=== PATIENT | female | born 1960 | race Caucasian/White ===

== ENCOUNTER 2025-07-22 05:12 | Observation (INO) | payer OTHER ==
[2025-07-14 13:20] LABS: MEAN PLATELET VOLUME 9.2 FL (7.4-10.4); PRE OP HEMATOCRIT 38.5 % (35.0-45.0); PRE OP HEMOGLOBIN 12.9 g/dL (12.0-16.0); PRE OP PLATELET COUNT 180 X10'3 (140-440); PRE OP WHITE BLOOD COUNT 7.0 10'3 (4.8-10.8); RED CELL DISTRIBUTION WIDTH 14.1 % (11.5-14.5)
[2025-07-14 13:51] LABS: CREATININE 0.90 MG/DL (0.40-0.90); PRE OP ALT 15 U/L (30-65); PRE OP ANION GAP 8 (8-16); PRE OP AST 16 U/L (10-37); PRE OP BILIRUB, TOTAL 0.5 MG/DL (0.0-1.0); PRE OP GLUCOSE 93 MG/DL (70-104); PRE OP POTASSIUM 4.1 MMOL/L (3.4-5.1); PRE OP SODIUM 142 MMOL/L (135-145); TOTAL CARBON DIOXIDE 28.8 MMOL/L (24-32); eGFR 63 ML/MIN
[2025-07-22] VITALS (25 sets, daily range): BP systolic 96–161; BP diastolic 57–87; PULSE 37–76; RESP 10–19; TEMP 97.5–98.8; O2SAT 95–100
[~2025-07-22] VITALS: Ht 170.2 cm; Wt 117.9 kg
[~2025-07-22 05:12] MED LIST: ACET-1995 PO; CHOL-4 PO; MULT-1249 PO; NAPR220T67 PO; TIRZ2.5P SQ
[2025-07-22] MEDS: ringers solution, lacted 1,000 ML IV SCH ×2 (06:06→08:30)
[2025-07-22] MEDS: VANCOMYCIN/H2O 1.5g/300mL PB 300 ML IV ONE (06:07)
[2025-07-22] MEDS: ceFAZolin 2gm/dext,iso 50mL 50 ML IV ONE (06:07)
[2025-07-22] MEDS ORDERED: oxyCODONE IR 5mg (immed. release) tablet PO PRN (06:55)
[2025-07-22] MEDS ORDERED: bisacodyl 10mg suppository rectal RC PRN (06:55)
[2025-07-22] MEDS ORDERED: magnesium hydroxide 30ml (MOM) UD suspension PO PRN (06:55)
[2025-07-22] MEDS ORDERED: PCA WASTE DOCUMENTATION 1 MG ML MC SCH (06:55)
[2025-07-22] MEDS ORDERED: ondansetron/PF 4mg/2ml inj IV PRN ×2 (06:55→08:30)
[2025-07-22] MEDS ORDERED: ROPIVAcaine 0.5% (5mg/ml) 30ml vial ONE ×2 (07:00→09:15)
[2025-07-22] MEDS ORDERED: fentaNYL/PF 50MCG/1 ML 2ML syringe ONE (07:21)
[2025-07-22] MEDS ORDERED: ePHEDrine 50MG/ML INJ. ONE (07:32)
[2025-07-22] MEDS ORDERED: MIDAZolam 1 MG/ML 5ML VIAL ONE (07:32)
[2025-07-22] MEDS: ROPIVAcaine 0.5% (5mg/ml) 30ml vial IJ ONE (07:56)
[2025-07-22] MEDS ORDERED: fentaNYL/PF 50MCG/1 ML 2ML syringe IV PRN ×2 (08:30)
[2025-07-22] MEDS ORDERED: HYDROmorphone/PF 0.2 MG/ML SYRINGE IV PRN (08:30)
[2025-07-22] MEDS ORDERED: hydrALAZINE 20mg/ml inj. IV PRN (08:30)
[2025-07-22] MEDS ORDERED: labetalol 20mg/4ml (5mg/ml) syringe IV PRN (08:30)
[2025-07-22] MEDS ORDERED: propofol inj 20 ML IV ONE ×2 (09:15)
--- NOTE | 2025-07-22 09:48 | OPERATIVE REPORT ---
Operative Report Operative Report OPERATIVE REPORT [facility] [address] [place] [address] Date of service: July 22, 2025 PREOPERATIVE DIAGNOSIS M17..16 Primary osteoarthritis of right knee POSTOPERATIVE DIAGNOSIS M17..16 Primary osteoarthritis of right knee Operation Performed 22917 Total Knee Arthro[place]: [place] [address] Computer Assisted Navigation Musculoskeletal - Imageless [id number] Remote therapeutic monitoring; device supply with scheduled recordings every 30 days. Procedure: Computer-assisted, robotically-assisted, right total knee a rthroplasty. Surgeon: Dr. Roberto Carlos Banks Milled Rubber Tender: Marcela Rodas PA-C Anesthesiologist: Dr. Krishnamurthy Anesthesia: Spinal anesthetic and regional blocks Indications: 65-year-old female who has chronic osteoarthritis of the right knee with severe pain and limitation of activities despite extensive non- operative management. This patient has had extensive conservative treatment of knee joint arthritis, including rest, external joint support, anti-inflammatory medications, physical therapy, and corticosteroid injection. Physical therapy has been provided, along with a home exercise program prior to making the decision to proceed with surgical treatment. This therapeutic intervention did not provide any substantial relief of symptoms or improvement in function. The patient has been utilizing a cane, set of crutches, or walker, for more than 3 months prior to deciding to proceed with surgery. These interventions have not provided sufficient relief of pain to allow improvement in function. The patient has utilized non-steroidal anti-inflammatory medications for relief of pain over an extended period of time (more than 2 months), and has not experienced sufficient improvement in symptoms. Despite these treatments, this patient has continued difficulties with pain and limited function. They are unable to walk long distances, do vigorous activities, sit or sleep comfortably. Total knee replacement is the next reasonable step in terms of treatment. Indications for wardrobe assistant surgeon: A second set of skilled hands with specific orthopedic knowledge of the surgical procedure and orthopedic surgical techniques was necessary to accomplish this operation successfully, and with the least amount of morbidity for the patient. This facilitated operative exposure, manipulation and handling of tissues, placement of any implants, and accomplishment of wound closure. Findings: There was indeed a very severely arthritic knee, with loss of cartilage, exposed bone, and marginal osteophytes. The lateral compartment was particularly bad. A 1 degree valgus deformity and half a degree of extension were measured preoperatively. Post operative alignment was 1 degree valgus, and 1 degree extension. Complications: None Estimated Blood Loss: 150 mL Implants: A Riky Persona CR total knee system was utilized with a size nine right femoral component, a size F right tibial component with a smart stem, and a 35 mm patellar component. A 10 mm medial congruent right tibial insert was utilized. The [employer] robotically assisted total knee arthroplasty system and computer was utilized. Procedure: The risks, benefits, expected results, and possible complications of the planned procedure had been explained to the patient and informed consent obtained. The patient was taken to the operating room and underwent a spinal anesthetic. The patient was placed in the supine position on the operating table, and the right leg was prepped and draped in the usual fashion. A timeout was taken prior to surgery, confirming patient identification, operative side operative site, planned procedure, administration of pre-operative antibiotics, site marking, and presence of all necessary implants and instruments, x-rays and equipment. A standard anterior, slightly lateral approach was performed with a medial parapatellar arthrotomy, and a VMO split. Time was then spent removing excessive synovial tissue and exposing the medial and lateral gutters, as well as moving the anterior sections of the residual menisci. The patella was mobilized to be able to be retracted laterally. This gave exposure of the anterior aspect of the knee. Attention was then directed to the patella. An oscillating saw was utilized to make a flat cut in a freehand manner, removing approximately 9 mm of thickness. The patella was then sized and drilled for the appropriate size patella implant. Infrared arrays were then placed on the distal shaft of the femur anteriorly, and the proximal tibia medially. Utilizing the [employer] computer system, the hip, knee, and ankle were landmarked in usual fashion. The initial alignment measurements were then taken confirming the above listed deformity. Surgical planning was then carried out on the computer, confirming alignment of components, sizing, and gap balancing. Appropriate soft tissue releases were performed. The wardrobe assistant surgeon was instrumental in maintaining exposure and tissue management and protecting vital structures. The robot was then utilized to perform all distal femoral cuts. The femur was prepared in 4 degrees of flexion and neutral coronal alignment. The robot was then utilized to cut the proximal tibia in 5 degrees of flexion and neutral coronal alignment. The computer was then utilized to check longitudinal alignment and soft tissue balance, and this confirmed excellent alignment. Next the dynamic balancing block was utilized to check and adjust soft tissue balancing. Finally, attention was directed to the proximal tibia. The implant was sized and properly rotated, the central drill, and the fin punch performed. Final check of alignment and balancing was then carried out, as well as final removal and cleaning up of soft tissue such as meniscal remnants and osteophytes. Cement was then mixed; 2 batches were utilized, mixed together, for the tibia, the femur and the patella. The cut surface of the tibia was thoroughly lavaged with the pulsating lavage and then dried. The tibia was impacted with the mallet, seating it quite nicely in its proper rotational alignment. Excess cement was removed from around the margins. The femoral cuts were cleaned with a pulsating lavage and then dried with the lap sponges, and the femur was impacted into position with a mallet. The patella was held firmly in place with a clamp. Excess cement was removed around the margins of the components as the cement cured. Pressure was held on the femoral component and tibia by placing a spacer and bringing the leg to full extension and applying axial and hyperextension force. Upon complete hardening of all cement, the knee was inspected and excess cement removed. We lavaged the knee to wash out any debris and checked to make sure we had no impinging cement. The trial spacer was replaced and overall alignment checked with computer, ensuring we had full extension of the knee, and appropriate medial and lateral soft tissue balance, as well as flexion and extension balance. The tourniquet was deflated and hemostasis obtained with electrocautery. The wound was irrigated thoroughly one more time and then dried with lap sponges. The final tibial spacer was impacted and locked into the locking mechanism without difficulty. After final irrigation and suction of excess fluid, the knee was infiltrated with our intraoperative local anaesthetic mixture for postoperative pain control. The tibial and femoral navigation pins and arrays were removed. The wound was then closed in layers including retinacular closure, subcutaneous tissue, and skin. A sterile dressing was applied and the patient was returned to the recovery room in satisfactory condition. In the recovery area the remote monitoring station was dispensed to the patient and family. Instructions were given for its usage and highway maintenance supervisor once the patient got home. We also confirmed the patient had installed the [employer] mobility software, and we ensured that the patient was enrolled in appropriate software platform from our end. Remote monitoring was initiated at the preoperative appointment and the devices used for remote monitoring implanted and dispensed today. Electronically Signed by: Roberto Carlos Banks MD Doctor, Orthopedic Surgery Signed on: 07/22/2025 09:47 AM ROBERTO CARLOS BANKS MD Jul 22, 2025 09:48
[2025-07-22] MEDS: acetaminophen 1,000mg/100ml IV 100 ML IV PRN (10:31)
[2025-07-22] MEDS: oxyCODONE IR 5mg (immed. release) tablet PO PRN (12:36)
[2025-07-22] MEDS: LidoCAINE 2% Topical Jelly 11mL syringe (UROJET) TOP ONE (13:20)
[2025-07-22] MEDS: potassium cl 20mEq in 1/2 NS 1,000 ML IV SCH (14:47)
[2025-07-22] MEDS: HYDROmorphone/PF 0.2 MG/ML SYRINGE IV PRN (15:00)
[2025-07-22] MEDS ORDERED: ceFAZolin/D5W- 1GM premix 50 ML IV SCH (15:00)
[2025-07-22] MEDS: ceFAZolin/D5W- 1GM premix 50 ML IV SCH (16:36)
[2025-07-22] MEDS: vancomycin/NS 1 GM ADD-VANTAGE 250 ML IV SCH (19:25)
[2025-07-23 02:02] VITALS: BP 142/69; PULSE 61; RESP 16; TEMP 97.3; O2SAT 95
[2025-07-23 05:51] LABS: MEAN PLATELET VOLUME 9.3 FL (7.4-10.4); RED CELL DISTRIBUTION WIDTH 14.5 % (11.5-14.5)
[2025-07-23 06:00] VITALS: BP 145/74; PULSE 58; RESP 16; TEMP 98.1; O2SAT 95
[2025-07-23 06:01] LABS: TOTAL CARBON DIOXIDE 27.0 MMOL/L (24-32)
--- NOTE | 2025-07-23 06:53 | DISCHARGE SUMMARY ---
Discharge Summary [facility] ~ Discharge Summary *Problems/Diagnosis: (1) S/P total knee arthroplasty Status: Acute Admission Diagnosis: osteoarthritis Discharge Diagnosis\Comment: see above Operations\Procedures see above Consultants: none Complications: none Condition on DC: Stable Discharge Summary: Patient was admitted on date of surgery. Surgery went without complication. Uneventful overnight stay. Pain managed. Dressing clean and dry. Patient stable for discharge home as long as PT criteria met today. Total Time Spent on D/C: Up to 30 Minutes Medications Home Meds: Home Medications Active Reported Acetaminophen Extra Strength (Acetaminophen) 500 Mg Tablet 1,000 Mg PO DAILY PRN Mounjaro (Tirzepatide) 2.5 Mg/0.5 Ml Pen.injctr 1 Unit SQ Q7D PT TAKES ON FRIDAYS Vitamin D3 (Cholecalciferol (Vitamin D3)) 250 Mcg (89521 Unit) Capsule 1 Cap PO DAILY 30 Days Aleve (Naproxen Sodium) 220 Mg Tablet 220 Mg PO DAILY PRN Multivitamin 1 Each Tablet 1 Tab PO DAILY 30 Days Supervising Physician Supervising Physician: Dr. Roberto Carlos Banks Problem Qualifiers (1) S/P total knee arthroplasty: Qualified Codes: Z96.651 - Presence of right artificial knee joint TIMOTHY TOBIAS PAC Jul 23, 2025 06:53
[2025-07-23 08:00] VITALS: RESP 18; O2SAT 96
[2025-07-23 10:00] VITALS: BP 140/75; PULSE 67; RESP 18; TEMP 98.5; O2SAT 96
[2025-07-23 16:33] VITALS: RESP 14
== END 2025-07-23 18:15 | disposition home or self-care (01) ==
LOC: PAS 05:12 → PAS IN 07:01 → ORTHO 4S 11:40
PROVIDERS: ADMIT Orthopaedic Surgery; ATTEND Orthopaedic Surgery
DX: M17.11 Unilateral primary osteoarthritis, right knee (principal); M25.561 Pain in right knee; M21.00 Valgus deformity, not elsewhere classified, unspecified site; E66.9 Obesity, unspecified; Z68.41 Body mass index [BMI] 40.0-44.9, adult; Z79.899 Other long term (current) drug therapy; Z98.890 Other specified postprocedural states
CPT/HCPCS: 20985; 27447; 36415; 80051; 80053; 82948; 85025; 87081; 96365; 96366; 96368; 96375; 96376; 97110; 97116; 97161; 97530; C1713; C1776; G0378; J0131; J0690; J1171; J2250; J2704; J2795; J3010; J3373; J3375; J3480; J3490; J7120; A4215; A4314; A4618; A6402; A6449; A7000; C9250